=== PATIENT | female | born 1935 | race African-American/Black ===

== ENCOUNTER 2021-04-20 18:26 | Emergency (ER) | payer MEDICARE ==
[~2021-04-20] VITALS: Ht 157.5 cm; Wt 57.1 kg
[2021-04-20 19:36] LABS: ABSOLUTE NEUTROPHILS 3.8 thou/uL (1.4-8.2); BASOPHILS 0.4 % (0.0-2.0); EOSINOPHILS 1.5 % (0.0-3.0); HEMATOCRIT 40.5 % (37.0-47.0); HEMOGLOBIN 13.3 gm/dL (12.0-15.0); LYMPHOCYTES 31.1 % (24.0-44.0); MCH 30.8 pg (26.0-34.0); MCHC 32.8 g/dL (28.0-37.0); MCV 93.7 fL (80.0-100.0); MONOCYTES 9.1 % (1.0-8.0); PLATELET COUNT 184 thou/uL (150-400); POLYS 57.9 % (36.0-66.0); RBC 4.32 mil/uL (4.20-5.00); RDW 14.2 % (10.5-14.5); WBC 6.5 thou/uL (4.0-11.0)
[2021-04-20 19:52] LABS: ANION GAP 7 mmol/L (7-16); BUN 17 mg/dL (7-18); CALCIUM 9.9 mg/dL (8.5-10.1); CHLORIDE 109 mmol/L (98-107); CO2 29 mmol/L (21-32); CREATININE 0.8 mg/dL (0.6-1.0); GLUCOSE 86 mg/dL (74-106); POTASSIUM 3.7 mmol/L (3.5-5.1); SODIUM 145 mmol/L (136-145)
[2021-04-20 19:55] LABS: APTT 23.9 Seconds (24.5-32.8); INR 0.94; PROTIME 10.3 Seconds (10.5-12.1)
[2021-04-20 20:03] LABS: DIRECT BILIRUBIN 0.1 mg/dL (<0.1-0.2); LIPASE 109 U/L (73-393); SGOT 17 U/L (15-37); SGPT 19 U/L (30-65); TOTAL BILIRUBIN 0.5 mg/dL (0.2-1.0); TOTAL PROTEIN 6.9 g/dL (6.4-8.2); TROPONIN-I <0.06 ng/mL (<0.06)
[2021-04-20 20:58] LABS: URINE BILIRUBIN NEGATIVE (Negative); URINE BLOOD NEGATIVE (Negative); URINE COLOR YELLOW; URINE GLUCOSE-RANDOM* NEGATIVE (Negative); URINE KETONES NEGATIVE (Negative); URINE PROTEIN (DIPSTICK) NEGATIVE (Negative); URINE UROBILINOGEN 0.2 E.U./dl (0.2-1.0)
[2021-04-20 20:59] LABS: URINE CLARITY CLOUDY; URINE LEUKOCYTES-REFLEX 2+ (Negative); URINE NITRITE-REFLEX POSITIVE (Negative)
[2021-04-20] MEDS ORDERED: CEPHALEXIN500 MG PO (21:16)
[2021-04-20 21:22] LABS: BACTERIA-REFLEX >30 Many /HPF (None Seen); CASTS None Seen /LPF (None Seen); CRYSTALS None Seen /LPF (None Seen); MUCUS 0-3 Light strn/LPF (None Seen); SQUAMOUS 0-3 Few /LPF (0-3); URINE RBC None Seen /HPF (NONE SEEN); URINE WBC-REFLEX 0-5 Rare /HPF (0-5)
[2021-04-20 21:33] VITALS: BP 177/72
--- NOTE | 2021-04-21 07:49 | EKG ---
[place] [address] [facility] [address] [place] [address] ELECTROCARDIOGRAM REPORT Name: Juliet Slater Room #: [facility] [id number] Admission: 04/20/21 Attend Phys: Discharge: 04/20/21 Date of : 37 Report #: [id number] [facility] ED Test Date: 2021-04-20 Test Time: 18:37:13 Pat Name: Juliet Slater Department: Room: Gender: F Pecan Picker: AMANDEEP : [id number] Requested By: Uri Castanon Order Number: [id number] MD: Koffi English Measurements Intervals [place] Rate: 86 P: 1 AR: 153 QRS: -13 QRSD: 76 T: 31 QT: 357 QTc: 427 Interpretive Statements Sinus arrhythmia Low voltage, precordial leads No previous ECG available for comparison Electronically Signed On 04-21-2021 7:49:06 CDT by Koffi English [email or web address] <ELECTRONICALLY SIGNED> By: Koffi English MD, [facility] 04/21/21 0749 [id number] 36 Koffi English MD, FACC /EPI
== END 2021-04-20 21:35 | disposition home or self-care (01) ==
LOC: ER 18:26
PROVIDERS: Nurse Practitioner
DX: K92.2 Gastrointestinal hemorrhage, unspecified (principal); N39.0 Urinary tract infection, site not specified; I10 Essential (primary) hypertension; Z20.822 Contact with and (suspected) exposure to COVID-19